=== PATIENT | female | born 1995 | race Caucasian/White ===

== ENCOUNTER 2020-06-02 12:20 | Emergency (ER) | payer BC, SELFPAY ==
--- NOTE | 2020-06-02 12:31 | ED.GENADULT ---
HPI - General Adult General Chief complaint: Upper Respiratory Infection Stated complaint: fliu symptoms Time Seen by Provider: 06/02/20 12:32 Source: patient Mode of arrival: ambulatory Limitations: no limitations History of Present Illness HPI narrative: 25-year-old female patient presents to the [facility] with complaints of cold and flulike symptoms for the past 3 days. Patient states that her mother was diagnosed with COVID-19 whom she does live with. Patient states that because of that she did get tested for Covid on Tuesday however did not develop symptoms until Tuesday. Patient states that the test that she received Tuesday did come back negative. Patient denies getting a flu shot this year. Patient states that she has had nasal congestion, runny nose, low-grade fever, a cough that is dry and a sore throat. Denies any abdominal pain, nausea, vomiting or diarrhea. Denies chest pain or shortness of breath. Related Data Home Medications Medication Instructions Recorded Confirmed escitalopram oxalate [Lexapro] 10 mg PO DAILY 06/02/20 06/02/20 Allergies Allergy/AdvReac Type Severity Reaction Status Date / Time No Known Allergies Allergy Verified 06/02/20 12:57 Review of Systems Review of Systems: Narrative: CONSTITUTIONAL: Positive low-grade fever, denies chills, or sweats. EYES: Denies visual changes, redness, or discharge. ENT: Positive rhinorrhea, congestion, sore throat, denies otalgia. CARDIOVASCULAR: Denies chest pain, palpitations, or edema. RESPIRATORY: Positive cough, denies dyspnea. GASTROINTESTINAL: Denies abdominal pain, nausea, vomiting, or diarrhea. GENITOURINARY: Denies dysuria or hematuria. SKIN: Denies rash or itching. MUSCULOSKELETAL: Denies back pain, joint pain, or myalgia. NEUROLOGIC: Denies headache, numbness, or weakness. PSYCHIATRIC: Denies anxiety or depression. PMFSH Social History Social History Gender identity (if verbalized by the patient): Female Comments At the time of my signature I agree with nursing past medical history, surgical, social, and family history. There is no relevant family history pertinent to the presenting complaint. Exam Narrative: Exam Narrative: GENERAL: ill-appearing, well-nourished, and in no acute distress. HEAD: Normocephalic, atraumatic. EYES: PERRLA and EOMI. ENT: Nares with erythema and edema noted bilaterally, no rhinorrhea or epistaxis. Mucous membranes moist. Bilateral TMs are clear no erythema or foreign bodies in the canal. NECK: Supple. No lymphadenopathy CHEST: Clear to auscultation. No respiratory distress. No labored breathing noted. No tripoding noted. Patient able talk clear complete sentences. HEART: Regular rate and rhythm. No murmur heard. Normal peripheral pulses. ABDOMEN: Soft, nontender, nondistended, normal active bowel sounds. EXTREMITIES: Normal range of motion. No edema. SKIN: Warm, dry, no rash. NEURO: No focal deficits. Alert and oriented x3. Course Vital Signs Vital signs: Vital Signs Temperature 36.7 C 06/02/20 12:50 Pulse Rate 105 H 06/02/20 12:50 Respiratory Rate 18 06/02/20 12:50 Blood Pressure 137/75 06/02/20 12:50 Pulse Oximetry 99 06/02/20 12:50 Temperature 36.7 C 06/02/20 12:58 Pulse Rate 105 H 06/02/20 12:58 Respiratory Rate 18 06/02/20 12:58 Blood Pressure 137/75 06/02/20 12:58 Pulse Oximetry 99 06/02/20 12:58 Vital signs reviewed. Medical Decision Making Differential Diagnosis Differential Diagnosis: Differential diagnosis: Allergic rhinitis, chronic sinusitis, tonsillitis, acute sinusitis, infectious mononucleosis, seasonal influenza, pertussis, diphtheria, meningococcal disease, viral syndrome, viral bronchitis, RSV. Discussed with patient that her strep and flu were both negative today. Discussed with patient that since her mother was positive she needs to just assume that she does have COVID-19 despite having a
[2020-06-02 12:50] VITALS: BP 137/75; PULSE 105; RESP 18; TEMP 36.7; O2SAT 99
[2020-06-02 12:58] VITALS: BP 137/75; PULSE 105; RESP 18; TEMP 36.7; O2SAT 99
== END 2020-06-02 13:19 | disposition home or self-care (01) ==
PROVIDERS: Emergency Provider Nurse Practitioner Family; PCP Internal Medicine
DX: J06.9 Acute upper respiratory infection, unspecified (principal); R05 Cough; Z20.828 Contact with and (suspected) exposure to other viral communicable diseases; F41.9 Anxiety disorder, unspecified
CPT/HCPCS: 87081; 87804; 87880; 99213; G0463

== ENCOUNTER 2024-02-01 12:08 | Outpatient (CLI) | payer OTHER, SELFPAY ==
--- NOTE | ~2024-02-01 | US_ITS ---
US breast LT limited INDICATION: Left breast palpable abnormality TECHNIQUE: Dedicated Limited left breast ultrasound COMPARISON: No prior studies for comparison. FINDINGS: The left breast is composed of normal heterogeneous echotexture without focal solid or cyst ic mass. IMPRESSION: 1: Normal left breast ultrasound. BI-RADS CATEGORY 1 - NEGATIVE Reviewed, dictated and finalized at location B.
== END 2024-02-01 12:09 | disposition home or self-care (01) ==
PROVIDERS: PCP Internal Medicine; Visit Provider Obstetrics & Gynecology
DX: N63.25 Unspecified lump in the left breast, overlapping quadrants (principal)
CPT/HCPCS: 76642

== ENCOUNTER 2024-03-07 12:56 | Outpatient (CLI) | payer OTHER, SELFPAY ==
[2024-03-07 14:30] LABS: Beta HCG Quantitative 4.29 mIU/ML
== END 2024-03-07 12:57 | disposition home or self-care (01) ==
LOC: ANHLAB 12:58
PROVIDERS: PCP Internal Medicine; Visit Provider Obstetrics & Gynecology
DX: N91.2 Amenorrhea, unspecified (principal)
CPT/HCPCS: 36415; 84702

== ENCOUNTER 2024-03-12 16:21 | Outpatient (CLI) | payer OTHER, SELFPAY ==
[2024-03-12 17:19] LABS: Beta HCG Quantitative < 2.39 mIU/ML
== END 2024-03-12 16:22 | disposition home or self-care (01) ==
LOC: ANHLAB 16:22
PROVIDERS: PCP Internal Medicine; Visit Provider Obstetrics & Gynecology
DX: N93.9 Abnormal uterine and vaginal bleeding, unspecified (principal)
CPT/HCPCS: 36415; 84702

== ENCOUNTER 2024-04-09 16:32 | Outpatient (CLI) | payer OTHER, SELFPAY ==
[2024-04-09 17:21] LABS: Beta HCG Quantitative < 2.39 mIU/ML
== END 2024-04-09 16:33 | disposition home or self-care (01) ==
LOC: ANHLAB 16:33
PROVIDERS: PCP Internal Medicine; Visit Provider Obstetrics & Gynecology
DX: E28.2 Polycystic ovarian syndrome (principal)
CPT/HCPCS: 36415; 84702

== ENCOUNTER 2025-03-07 15:46 | Outpatient (CLI) | payer OTHER, SELFPAY ==
--- OUTSIDE RECORDS SUMMARY | 2025-03-07 15:50 | XMS_ITS | Clinical Summary ---
Author Organization [facility] Address [address] [place] [address] Care Team Providers Care Preschool Head Teacher Name Role Phone Unavailable Primary Care Provider Unavailabl e Source Comments [facility],non-owned Affiliates and Associated Physician Practices is amultiple site organization consisting of ambulatory clinics and hospital sitesin [place], [place], [place] and [place]. This disclosure is being madepursuant to the Care Everywhere program and may not contain all information available regarding this patient. Last updated 18.[employer] Medications * Be aware that medications may not be up to date on this document. Alwaysverify current medications with the patient. sertraline (ZOLOFT) 50 MG tabletIndicatio ns:Depression/a nxiety during Take 50 mg by mouth once daily Reasons: Depression/anx iety during Active Active Problems Problem Noted Date Diagnosed Date Depression screen 09/24/2021 Overview (09/24/2021): 09/24/2021 Miguel Rhoades was screened for depression using the [place] Depression Scale (EPDS) at her [facility] initial evaluation on 09/24/2021. Her initial score at baseline was 4. Based off of her score of 4, Miguel does not warrant follow up. Patient will continue to be screened throughout , at intervals no closer than two weeks, for continued surveillance and early identification of depression until delivery. Patient reports mental health history. Diagnoses include depression and anxiety. 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 GROUP HOME PATIENT--PLEASE CALL [phone] (ex 2) IF TRIAGED OR ADMITTED Care Provider: Referred by Dr. Liang; OB- [facility] [place] consultants involved: You- Nurse Navigator, Cardiology- Dr. Falk Diagnosis: DORV with small RV; pulmonary stenosis Planned surveillance: Patient transferred care to [facility] as of 10/06/2021 Delivery location: Delivery mode: Desired Delivery GA: follow up: Print Inspector: Autopsy indicated: Genetics note: Tunnel Man Concerns:09/24/2021-Patient with history of depression and anxiety-does take medication Care plan based on evaluation and is subject to change based on assessment. See Images or Cardiac under Chart Review for US/ ECHO/ MRI reports. 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 Gender Identity Not on file Sexual Orientation Not on file Last Filed Vital Signs Vital Sign Reading Time Taken Comments Blood Pressure 126/74 09/24/2021 11:31 AM PILE DRIVING SUPERVISOR Pulse 91 09/24/2021 11:31 AM PILE DRIVING SUPERVISOR Temperature - - Respiratory Rate - - Oxygen Saturation - - Inhaled Oxygen Concentration - - Weight 101 kg (222 lb 10.6 oz) 09/24/2021 11:31 AM PILE DRIVING SUPERVISOR Height - - Body Mass Index - - Plan of Treatment Health Maintenance Due Date Last Done Comments HIV SCREENING 2011 HEPATITIS C SCREENING 04/29/2014 DTAP/TDAP/TD VACCINES (1 - Tdap) 2015 HEPATITIS B VACCINE (1 of 3 - 19+ 3-dose series) 2015 PAP SMEAR 2017 HPV VACCINE (1 - 3-dose SCDM series) 2023 COVID-19 VACCINE (1 - 2023-2 5 season) 2024 DEPRESSION SCREENING 07/18/2024 INFLUENZA VACCINE (#1) 2025 9, 06/24/2018, 08/09/2013 ZOSTER VACCINE (1 of 2) 2046 HIB VACCINE Aged Out No longer eligi ble based on patient's age to complete this topic MENINGOCOCCAL (Group B) VACCINE SHARED DECISION-MAKING Aged Out No longer eligible based on patient's age to complete this topic MENINGOCOCCAL GROUPS A/C/Y/W VACCINE Aged Out No longer eligible b ased on patient's age to complete this topic PNEUMOCOCCAL VACCINE Aged Out No long er eligible based on patient's age to complete this topic Insurance EM
--- OUTSIDE RECORDS SUMMARY | 2025-03-07 15:50 | XMS_ITS | Clinical Summary ---
Author Organization [facility] Address [address] [place] [address] Care Team Providers Care Business Center Attendant Name Role Phone Robby Gresham MD Primary Care Provider [phone] Allergies No known active allergies Medications omeprazole (PriLOSEC) 40 mg Capsule, Delayed Release(E.C.) Take 1 Capsule (40 mg) by mouth daily. 30 Capsule 3 3 Active Additional Information Patient not taking.Reported on 07/26/2024 ergocalciferol (VITAMIN D2) 50,000 unit capsule Take 1 Capsule (50,000 Units) by mouth every 7 days. 12 Capsule 3 3 Active Additional Information Patient not taking.Reported on 07/26/2024 sertraline (ZOLOFT) 25 mg tablet Take 1 Tablet (25 mg) by mouth daily. 90 Tablet 3 4 Active levothyroxine 25 mcg tablet Take 1 Tablet (25 mcg) by mouth daily in the morning. 90 Tablet 3 5 Active Hospital, Clinic, or Other Facility Administered Medication Ordered Dose Route Frequency Start Date End Date Status cyanocobalamin (VITAMIN B-12) injection 1,000 mcgIndications:Vitamin D deficiency 1000 mcg IM EVERY MONTH 11/11/2022 Active Active Problems Patient Care Coordination No te Formatting of this note migh t be different from the original. Prev 07/26/24 Problem Noted Date Diagnosed Date PCOS (polycystic ovarian syndrome) 07/26/2024 Other specified hypothyroidism 07/26/2024 Other hyperlipidemia 11/11/2022 Moderate episode of recurrent major depressive d isorder 08/02/2022 Hair loss 08/02/2022 Dysmenorrhea 05/26/2020 Vitamin B12 deficiency (non anemic) 11/29/2019 Vitamin D deficiency 11/29/2019 Obesity (BMI 30-39.9) 07/03/2018 Other specified glaucoma 12/14/2017 Generalized anxiety disorder 12/14/2017 Encounters Date Type Department Care Team Description 02/20/2025 External Device Data [facility] ABSTRACTION Provider, Abstract 02/19/2025 External Device Data [facility] ABSTRACTION Provider, Abstract 01/30/2025 External Device Data [facility] ABSTRACTION Provider, Abstract 01/29/2025 External Device Data [facility] ABSTRACTION Provider, Abstract 01/15/2025 External Device Data [facility] ABSTRACTION Provider, Abstract from Last 3 Months Immunizations Immunization Administration Dates Next Due (ADACEL/BOOSTRIX)(10 YR UP) TDAP VACCINE, 0.5ML, IM 11/19/2021,11/19/2021,03/16/2019,02/18 (GARDASIL)(9-45 YRS) HUMAN PAPILLOMAVIRUS VACCINE, TYPES 6, 11, 16, 18, QUADRIVALENT (4VHPV), 3 DOSE, IM 09/02/2008,04/26/2008,02/19/2008 (VARIVAX)(12 MOS UP)VARICELL A VIRUS VACCINE (PF) 0.5 ML, SUB CUT 02/07/2015,05/06/1997 INFLUENZA VACCINE QUADRIVALE NT 6 MOS UP CELL DERIVED PF IM 07/08/2019 INFLUENZA VACCINE QUADRIVALE NT 6 MOS UP PF IM 04/13/2023,06/24/2018 INFLUENZA VACCINE TRIVALENT SPLIT VIRUS, (6 MOS UP), 0.5ML (PF), IM 05/10/2024 Influenza Seasonal Unspecifi ed Formulation IM 04/13/2023,06/02/2022,04/17/2021,07/08,08/09/2013 Influenza Vaccine 18+ C.derived Pf Im 07/08/2019 Meningococcal Polysaccharide Vaccine SQ 02/07/2015,01/13/2011 Family History Medical History Relation Name Comments Asthma Brother 1 Colon Cancer Neg Hx Relation Name Status Comments Brother 1 Alive neurofibromatos is Brother 2 Alive Father Alive Maternal Grandfather Alive Maternal Grandmother Alive Mother Alive Paternal Grandfather Paternal Grandmother Social History Tobacco Use Types Packs/Day Years Used Date Smoking Tobacco: Never Passive Smoke Exposure: Never Smokeless Tobacco: Never Tobacco Cessation:Counseling Given: No Alcohol Use Standard Drinks/Week Comments Yes 1 (1 standard drink = 0.6 oz pur e alcohol) Comments No Sex and Gender Information Value Date Recorded Sex Assigned at Not on file Legal Sex Female 2:57 PM CDT Gender Identity Not on file Sexual Orientation Not on file Last Filed Vital Signs Vital Sign Reading Time Taken Comments Blood Pressure 126/72 07/26/2024 2:35 PM CONTROL CLERK AUDITING Pulse 71 07/26/2024 2:35 PM CONTROL CLERK AUDITING Temperature 37.1 C (98.7 F) 04/13/2023 2:52 PM CDT Respiratory Rate 18 04/13/2023 2:52 PM CDT Oxygen Saturation 98% 07/26/2024 2:35 PM CONTROL CLERK AUDITING Inhaled Oxygen Concentration - - Weight 115 kg (253 lb 9.6 oz) 07/26/2024 2:35 PM CONTROL CLERK AUDITING Height 170.2 cm (5' 7) 07/26/2024 2:35 PM CONTROL CLERK AUDITING Body Mass Index 39.72 07/26/2024 2:35 PM CONTROL CLERK AUDITING Plan of Treatment Upcoming Encounters Date Type Department Care Team (Late st Contact Info) Description 04/25/2025 2:20 PM CDT Office Visit [facility] [address] [id number] [place] [id number] Robby Gresham MD [address] [place] [phone] Health Maintenance Due Date Last Done Comments HEPATITIS B VACCINES (1 of 3 - 19+ 3-dose series) 2015 HPV/Cotest (21-29) 2017 CERVICAL CANCER SCREENING 04/17/2021 PAP SMEAR 04/17/2021 04/17/2018 INFLUENZA VACCINE (#1) 2025 , 04/13/2023, 04/13/2023, Additional history exists DTAP/TDAP/TD VACCINES (5 - T d or Tdap) 11/20/2031 11/19/2021, 11/19/2021, 03/16/2019, Additional history exists HPV VACCINES Completed 09/02/2008, 04/17, 02/19/2008 Preventative Visit- Commercial Completed 0 07/26/2024, 08/02/2022, 09/29/2020, Additional history exists Insurance [facility] OPEN ACCESS HMO Advance Directives For more information, please contact: [phone] * Full Code (Latest Code Status on File) Date Activated Date Inactivated Comments 11/28/2018 1:18 PM 11/28/2018 4:58 PM Care Teams Business Center Attendant Relationship Specialty Start Date End Date Robby Gresham MD PCP - General Internal Medicine 12/14/17
--- OUTSIDE RECORDS SUMMARY | 2025-03-07 15:50 | XMS_ITS | Clinical Summary ---
Author Organization [facility] 1 [employer] Address [address] [place] [address] Phone Care Team Providers Care Tank Builder Supervisor Name Role Phone Marlys Guan MD Unavailable Robby Gresham MD Primary Care Provider + uJliano Zamora MD Unavailable [phone] Allergies No known active allergies Medications omeprazole (PriLOSEC) 40 mg capsule 10/08/2022 Active sertraline (ZOLOFT) 25 mg tablet Take 1 tablet (25 mg total) by mouth daily 02/06/2023 Active HYDROcodone-sue taminophen (NORCO) 5-325 mg per tabletIndicatio ns:Pain Take 1-2 tablets by mouth every 4 (four) hours as needed for pain 40 tablet 05/27/2023 Active ibuprofen (ADVIL,MOTRIN) 200 mg tab/capIndicati ons:Pain Take 3 tablet/capsu le (600 mg total) by mouth 3 (three) times a day FOR 3 DAYS ONLY 30 tablet 05/27/2023 Active Active Problems Problem Noted Date Diagnosed Date Chronic cholecystitis with calculus 05/25/2023 Biliary dyskinesia 05/25/2023 Other hyperlipidemia 11/11/2022 12/05/2022 Hair loss 08/02/2022 12/05/2022 Moderate episode of recurrent major depressive d isorder 08/02/2022 12/05/2022 Generalized anxiety disorder 02/16/2022 Family history of neurofibromatosis 10/22/2021 Overview (10/22/2021): -Brother with neurofibromatosis - Type 1 Allergic rhinitis 07/13/2021 12/05/2022 Heart disease 07/13/2021 12/05/2022 Overview (12/05/2022): 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/2021 12/05/2022 Overview (12/05/2022): Note: mom and MGM Neurological disorder 07/13/2021 12/05/2022 Overview (12/05/2022): Note: MGF- Parkinsons Disease Primary hypertension 07/13/2021 12/05/2022 Overview (12/05/2022): Note: dad and all grandparents Depressive disorder 12/25/2020 12/05/2022 Overview (12/05/2022): Note: dx with anxiety at 19 y old: meds at 22 till pt stopped lexapro 10 mg with positive test; mom, brother Dysmenorrhea 05/26/2020 Vitamin B12 deficiency (non anemic) 11/29/2019 IBS (irritable bowel syndrome) 07/06/2019 Obesity (BMI 30-39.9) 07/03/2018 Other specified glaucoma 12/14/2017 Resolved Problems Problem Noted Date Diagnosed Date Resolved Date care following vaginal delivery 01/06/2022 02/16/2022 Overview (01/08/2022): # ID: Afebrile. No signs/symptoms of infection. #COVID-19: Test not indicated # Heme: EBL 200mL. No symptoms acute blood loss anemia. # CV/Pulm: Vital signs stable, within normal limits. Single MR BP on admission, otherwise wnl. Not meeting criteria for gHTN. BPs continue to be WNL . Complaints of dizziness yesterday which has since improved. # GI/: Tolerating PO. Voiding spontaneously. # Endo: #GDMA1: FBG Ppd#1 87@ 0501 # Pain: Controlled with above regimen. # Psych: #Anxiety: continue home zoloft. Needs refill, rx sent. S/p SW consult PP. # Post DVT prophylaxis: The patient has the following MAJOR risk factors none and the following MINOR risk factors BMI 30-39. SCDs ordered for VTE prophylaxis. # MOC: Not interested in contraception during admission # MOF: Exclusively pumping Urine drug screen not indicated. Patient informed of results: N/A. # COVID Vaccination Status: Not assessed # Disposition: Follow up task sent to [facility] scheduling pool. Desires discharge home today. PROM (premature rupture of membranes) 01/05/2022 02/16/2022 Encounter for induction of labor 01/05/2022 02/16/2022 Overview (01/05/2022): 1. Induction of labor for PPROM: Admit to L&D. Consents signed and placed in chart. Sending CBC/T&S. Induction of labor with OT. 2. FWB: Continuous monitoring. tracing category I #fCHD: Double outlet R ventricle. Peds to be alerted when complete. Not prostaglandin dependent. Pediatric cardiac ICU alerted. 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 ID: HIV negative. GBS unknown, plan to start PCN. Membrane Status: spontaneous rupture at 0800 on 01/05. 4. GDMA1: For OB insulin protocol. 5. Anxiety: Mood stable on Zoloft. 6. Indications for UDS: none. Verbal consent obtained for UDS: Not indicated 7. MOF: Plans to breastfeed. Urine drug screen not indicated. Patient informed of results: pending. 8. MOC: Undecided on contraception. 9. Pain management: Epidural placed. 10. Post DVT prophylaxis: The patient has the following MAJOR risk factors none and the following MINOR risk factors BMI 30-39. SCDs will be ordered for VTE prophylaxis . 11. COVID Vaccine Status: Not assessed 12. COVID Test Status: Test not indicated Single umbilical artery affe cting management of mother in valladares , antepartum 12/03/2021 02/16/2022 Overview (12/03/2021): S/p counseling. Plan: - Serial growth ultrasounds Assessment & Plan (12/03/2021 5:26 PM CDT): S/p counseling with MFM. Plan: - Serial growth ultrasounds Gestational diabetes mellitu s (GDM), antepartum 11/06/2021 02/16/2022 Overview (12/23/2021): - 1-hour OGTT: 156 mg/dL, 3-hour OGTT: (2/4 elevated) - s/p counseling 11/19 - s/p DM education Current regimen: 12/23/2021 Diet controlled Plan: -Serial growth scans q4 weeks - currently does not need testing in the setting of gDMA1 - Delivery at 39 0/7 - 39 6/7 weeks gestation - 2 hour/75g OGTT at visit Assessment & Plan (12/23/2021 9:57 AM CDT): BS log reviewed with excellent control. Discussed walks after bigger meals. Assessment & Plan (12/15/2021 12:26 PM CDT): BS well controlled. Continue current regimen. Encouraged protein snacks. Assessment & Plan (12/03/2021 5:25 PM CDT): S/p counseling with MFM and DM education. Currently diet controlled with excellent glycemic control. 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 10/22/21 - Echo - notable for a hypoplastic RV with normal systolic function, unclear if ventricle will be able to support the entirety of the pulmonary blood flow in a biventricular repair (single ventricle palliative plan) or if RV will grow enough for more definitive surgical repair with arterial switch procedure. 11/19/21 - Echo - stable findings from previous Plan: - Per pediatric cardiology, will plan to repeat echo 4-6 weeks after 11/19/21 echo to re-evaluate the outflow tracts, the size of the right ventricle, and aortic/ductal arch - will arrange echo/peds cards with a follow up MFM appointment - [facility] delivery[facility]: 39 weeks - plan: Planned admission to the cardiac ICU. Fetus is expected to be desaturated and O2 saturations should be >80%. As this is transposition physiology, if the is more hypoxic then a balloon atrial septostomy may be needed. The ASD appears patent on most recent echo and there is a large VSD to promote mixing. Not planning to start PGE unless cyanosis is noted. 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 10/22/21 - Echo - notable for a hypoplastic RV with normal systolic function, unclear if ventricle will be able to support the entirety of the pulmonary blood flow in a biventricular repair (single ventricle palliative plan) or if RV will grow enough for more definitive surgical repair with arterial switch procedure. 11/19/21 - Echo - stable findings from previous Plan: - Per pediatric cardiology, will plan to repeat echo 4-6 weeks after 11/19/21 echo to re-evaluate the outflow tracts, the size of the right ventricle, and aortic/ductal arch - will arrange echo/peds cards with a follow up MFM appointment - Location of delivery: [facility] TO: 39 weeks - plan: Planned admission to the cardiac ICU. Fetus is expected to be desaturated and O2 saturations should be >80%. As this is transposition physiology, if the infant is more hypoxic then a balloon atrial septostomy may be needed. The ASD appears patent on most recent echo and there is a large VSD to promote mixing. Not planning to start PGE unless cyanosis is noted. Urinary tract infection in m other during second trimester of 10/22/2021 02/16/2022 Overview (10/23/2021): 08/08 - Macrobid - No UC results viewable in CareEverywhere. Urine negative on 10/14, no further work-up Assessment & Plan (12/03/2021 5:28 PM CDT): UTI s/p treatment with macrobid. S/p negative GRAHAM. Supervision of high-risk pre gnancy, unspecified trimester 10/21/2021 02/16/2022 Overview (12/30/2021): [facility] Nurse - Genevieve Bush - [phone] [x] Full M Care; Referring Provider: Self/SSM/ASSISTED, Primary OB: Eric Delvalle [x] Dating Criteria: 1T US 8w1d [x] Labs: Rh [A+], Ab [neg], Rubella [Imm], HIV [neg], HepBSAg [neg], RPR [NR], GC/CT [neg] [x] Genetic Screening: NIPT LR w/ 22q11.1 del [x] CBC/Hgb electrophoresis (if indicated): 1.8/41.7/271 [x] Early 1hr GTT (if indicated) [x] UCx: no growth [x] Pap: 09/2020 WNL [] LD ASA (if indicated) starting at 12 weeks: [x] EPDS [6]; PNBHS referral (if indicated): referred by Ped Cards on 09/28 2nd Tri Labs: [x] Anatomy ultrasound: Complex CHD - DORV/VSD [x] CBC/1hr gtt at 24-28wks: 1 hr GTT: 156 H&H: 11.5/36 3 hr GTT: 85/194/184/131 [] Flu Shot () [x] Tdap (27-36wks): 5/5/22 MM [x] COVID Vaccine: reports she has received covid vaccination 3rd Tri Labs: [x] CBC/HIV/RPR:11.9/37.1 plt 244, HIV neg, RPR NR [] GBS: discussed for 36 weeks Counseling [x] MOD: IOL at 39 weeks, scheduled 01/25 [x] Place of delivery: [facility] [] MOC: [x] Method of feeding: plans to exclusively pump [x] Cleaner Wall: [] PP Depression Discussed: Assessment & Plan (12/03/2021 5:29 PM CDT): care up to date. Plan for 3T labs at next visit. [facility] Nurse - Genevieve Bush - [phone] [x] Full MFM Care; Referring Provider: Self/SSM/ASSISTED, Primary OB: Eric Delvalle [x] Dating Criteria: 1T US 8w1d [x] Labs: Rh [A+], Ab [neg], Rubella [Imm], HIV [neg], HepBSAg [neg], RPR [NR], GC/CT [neg] [x] Genetic Screening: NIPT LR w/ 22q11.1 del [x] CBC/Hgb electrophoresis (if indicated): 1.8/41.7/271 [x] Early 1hr GTT (if indicated) [x] UCx: no growth [x] Pap: 09/2020 WNL [] LD ASA (if indicated) starting at 12 weeks: [x] EPDS [6]; PNBHS referral (if indicated): referred by Ped Cards on 09/28 2nd Tri Labs: [x] Anatomy ultrasound: Complex CHD - DORV/VSD [x] CBC/1hr gtt at 24-28wks: 1 hr GTT: 156 H&H: 11.5/36 3 hr GTT: 85/194/184/131 [] Flu Shot () [x] Tdap (27-36wks): 5/5/22 MM [x] COVID Vaccine: reports she has received covid vaccination [x] Rhogam at 28 wks (if Rh neg): n/a 3rd Tri Labs: [] CBC/HIV/RPR/T&S: collect at next visit [] GBS: [] GC/CT (if indicated): Counseling [] MOD: [x] Place of delivery: [facility] [] MOC: [] Method of feeding: [] Cleaner Wall: [] PP Depression Discussed: Vitamin D deficiency 11/29/2019 022 Acute bacterial tonsillitis 02/22/2016 10/22/2021 Overview (10/23/2016): Acute bacterial tonsillitis Pharyngitis 02/22/2016 10/22/2021 Overview (10/23/2016): Pharyngitis, unspecified etiology Anxiety during 02/12/201608/2021 Overview (12/23/2021): S/p counseling 10/22 Plan: - continue zoloft, discussed options for increasing dose and pt will consider - established with [facility] - will plan for weekly visits at this time - Monitor mood each visit Assessment & Plan (12/23/2021 9:56 AM CDT): Reports significant anxiety this . Has a doppler at home. [facility] reviewed today. Patient feels weekly appts have been helpful. Assessment & Plan (12/15/2021 12:25 PM CDT): Reports increased anxiety. Open to increasing meds but wants to try increasing her appts and therapy first. Reports GI upset when started zoloft. Assessment & Plan (12/03/2021 5:27 PM CDT): S/p counseling 10/22. Mood appropriate today, on zoloft. Plan: - Continue zoloft - Monitor mood each visit Assessment & Plan (10/23/2021 5:05 PM CDT): Ms. Rhoades is currently on Zoloft and feels that it does alleviate symptoms of depression. She feels that her mood is currently stable. We discussed that we do not have sufficient human data to rule out potential risks, however, there are no strong associations with any congenital malformations. We discussed that the potential risks of any medications need to be weighed against the risks of uncontrolled maternal disease in and that in many cases, the risks of uncontrolled maternal depression outweigh potential risks of SSRIs. We also discussed abstinence syndrome and potential for respiratory depression and longer hospital stay for the . SEFERINO symptoms can be managed and there have not been oysterman effects reported. Otitis externa 04/15/2014 10/22/2021 Overview (10/23/2016): Otitis externa, left Immunizations Immunization Administration Dates Next Due Flucelvax Influenza Quad 07/08/2019 HPV, Quadrivalent 09/02/2008,04/26/2008,02/19/20 08 Influenza, Quadrivalent, Spl it, Preservative Free, Intramuscular 06/24/2018 Influenza, Split 08/09/2013 Influenza, Trivalent, Cell Culture-based MDCK, Preservative Free, Antibiotic Free, Intramuscular 07/08/2019 Influenza, Trivalent, IM (MDV) 2,04/17/2021,07/08/2019,08/09 Meningococcal MCV4P (Menactra) 02/07/2015,2010 Tdap 11/19/2021,03/16/2019,02/19/2008 Varicella 02/07/2015,05/06/1997 Surgical History Surgery Date Site/Laterality Comments OTHER SURGICAL HISTORY 07/18/2019 - 07/17/2020 Excision epidermoid cyst - left chest Medical History Medical History Date Comments Acute bacterial tonsillitis 02/22/2016 Acut e bacterial tonsillitis Vitamin D deficiency 11/29/2019 Pharyngitis 02/22/2016 Pharyngitis, uns pecified etiology Otitis externa 04/15/2014 Otitis externa, left GDM (gestational diabetes mellitus) Anxiety Depression Glaucoma Menstrual problem Family History Medical History Relation Name Comments Neurofibromatosis Brother 1 Depression Brother 2 [place] Cancer Maternal Grandfather Kenrick Anemia Maternal Grandmother Jojo Breast cancer Maternal Grandmother Jojo Cancer Maternal Grandmother Jojo Endometrial cancer Maternal Grandmother Jojo Stroke Maternal Grandmother Jojo Anemia Mother Stephanie Hypertension Mother Stephanie Anemia Mother's Sister Ayah Other Other 1 1 Other Other 2 1 Other Other 3 1 Alzheimer's disease Paternal Grandmother Yolanda Stroke Paternal Grandmother Yolanda Onset 3 0s Relation Name Status Comments Brother 1 Brother 2 [place] Maternal Grandfather Kenrick Maternal Grandmother Jojo Mother Stephanie Mother's Sister Ayah Other 1 Other 2 Other 3 Paternal Grandmother Yolanda Social History Tobacco Use Types Packs/Day Years Used Date Smoking Tobacco: Never Smokeless Tobacco: Never Tobacco Cessation:Counseling Given: Not Answered Alcohol Use Standard Drinks/Week Comments No 0 (1 standard drink = 0.6 oz pur e alcohol) Social Connection and Isolation Panel Answer Date Recorded In a typical week, how many times do you talk on the phone with family, friends, or neighbors? More than three times a week 01/07/2022 How often do you get togethe r with friends or relatives? More than three times a week 01/07/2022 How often do you attend chur ch or advent services? Never 01/07/2022 Do you belong to any clubs o r organizations such as gnosticism groups, unions, fraternal or athletic groups, or school groups? No 01/07/2022 How often do you attend meet ings of the clubs or organizations you belong to? Never 01/07/2022 Are you , , di vorced, , never , or living with a partner? 01/07/2022 AUDIT-C Answer Date Recorded Q1: How often do you have a drink containing alcohol? Never 02/13/2023 Q2: How many drinks containi ng alcohol do you have on a typical day when you are drinking? Patient does not drink Q3: How often do you have si x or more drinks on one occasion? Never 02/13/2023 Overall Financial Resource Strain (CARDIA) Answe r Date Recorded How hard is it for you to pa y for the very basics like food, housing, medical care, and heating? Not hard at all 01/07/2022 Hunger Vital Sign Answer Date Recorded Within the past 12 months, y ou worried that your food would run out before you got the money to buy more. Never true 01/08/20 22 Within the past 12 months, t he food you bought just didn't last and you didn't have money to get more. Never true 01/07/2022 PRAPARE - Transportation Answer Date Re corded In the past 12 months, has l ack of transportation kept you from medical appointments or from getting medications? No 12/17 In the past 12 months, has l ack of transportation kept you from meetings, work, or from getting things needed for daily living? No 01/07/2022 Housing Stability Vital Sign Answer Rodger e Recorded In the last 12 months, was t here a time when you were not able to pay the mortgage or rent on time? No 01/07/2022 In the last 12 months, how many places have you lived? 1 01/07/2022 In the last 12 months, was t here a time when you did not have a steady place to sleep or slept in a chcf (including now)? No 01/07/2022 Burwell Depression Scale Answer Date Recorded Burwell Depression Scale Total 8 02/16/2022 The thought of harming myself has occurred to me . Never 02/16/2022 Personal Safety Answer Date Recorded Have you ever been in or are you currently in a harmful physical or emotional relationship or is someone making you feel afraid or unsafe? 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 Main C ampus ([facility]) Last Filed Vital Signs Vital Sign Reading Time Taken Comments Blood Pressure 139/78 05/27/2023 3:35 PM [employer]ODU[employer] SALES REPRESENTATIVE Pulse 102 05/27/2023 3:35 PM [employer] SALES REPRESENTATIVE Temperature 36.9 C (98.5 F) 05/27/2023 3:20 PM [employer] SALES REPRESENTATIVE Respiratory Rate 14 05/27/2023 3:35 PM [employer] SALES REPRESENTATIVE Oxygen Saturation 96% 05/27/2023 3:35 PM [employer] SALES REPRESENTATIVE Inhaled Oxygen Concentration - - Weight 103.7 kg (228 lb 9.9 oz) 023 10:01 AM [employer] SALES REPRESENTATIVE Height 172.7 cm (5' 8) 05/27/2023 10:0 1 AM [employer] SALES REPRESENTATIVE Body Mass Index 34.76 05/27/2023 10:01 AM [employer] SALES REPRESENTATIVE Plan of Treatment Health Maintenance Due Date Last Done Comments Hepatitis C Screening 1995 Hepatitis B Screening 2014 Cervical Cancer Screening 09/29/2021 09/29/2020, Regular Well Visit/Exam 18-64 09/29/2021 09/29/2020, 07/06/2019, 07/03/2018, Additional history exists Depression Screening 02/16/2023 02/16/2022 Influenza Vaccine (#1) 2025 3, 06/02/2022, 04/17/2021, Additional history exists DTaP/Tdap/Td Vaccine (4 - Td or Tdap) 11/20/2031 11/19/2021, 03/16/2019, 02/19/2008 HPV Vaccines Completed 09/02/2008, 04/17, 02/19/2008 Varicella Vaccines Completed 02/07/2015, 05/06/1997 Pneumococcal vaccine <65 Aged Out No longer eligible based on patient's age to complete this topic Procedures Procedure Name Priority Date/Time Associated Diagnosis Comments THINPREP IMAGING PAP REFLEX HPV MRNA E6/E7 Routine 09/29/2020 12:00 AM CDT from Last 3 Months or Most Recently Relevant to Health Maintenance Results * ThinPrep Imaging Pap Reflex HPV mRNA E6/E7 (09/29/2020 12:00 AM CDT) CLINICAL INFORMATION: Sanaz Davila Comment:Information not prov ided LMP Sanaz Davila Comment:09/11/20 Previous Pap Sanaz MarkBety Davila Comment:PREV NEG Prev. Bx Sanaz MarkBety Davila Comment:Information not prov ided SOURCE: Sanaz MarkBety Davila Comment:Cervix, Endocervix Pap, specimen adequacy Sanaz MarkBety Davila Comment: Satisfactory for evaluation. Endocervical/transformation zone component present. HPV interp Sanaz MarkBety Davila Comment:Negative for intraep ithelial lesion or malignancy. COMMENTS Sanaz MarkBety Davila Comment: This Pap test has been evaluated with computer assisted technology. Buttonhole Maker Hand Jorge lee MarkBety Davila Comment: TMK, CT(ASCP) CT screening location: [place] [address] Administration [place] [id number] Comment Sanaz MarkBety Davila Comment: EXPLANATORY NOTE: The Pap is a screening test for cervical cancer. It is not a diagnostic test and is subject to false negative and false positive results. It is most reliable when a satisfactory sample, regularly obtained, is submitted with relevant clinical findings and history, and when the Pap result is evaluated along with historic and current clinical information. 09/29/2020 09/30/2020 3:3 1 AM CDT Narrative [facility] - 10/01/2020 12:32 PM CDT FASTING: UNKNOWN Marlys Guan MD LAB PATHOLOGY ORDERAB LES Final Result [facility] [place] Sanaz [place] [id number] [address] [place] [phone] from Last 3 Months or Most Recently Relevant to Health Maintenance Insurance [employer] [place] H[employer]/POS [employer] [facility] HMO [facility] HMO Advance Directives For more information, please contact: [phone] * Full Code (Latest Code Status on File) Date Activated Date Inactivated Comments 01/06/2022 8:23 AM 01/08/2022 6:05 PM * Full Code Date Activated Date Inactivated Comments 01/05/2022 9:08 AM 01/06/2022 8:23 AM Care Teams Tank Builder Supervisor Relationship Specialty Start Date End Date Robby Gresham MD [address] [id number] PCP - General 12/24/17 Marlys Guan MD [address] [id number] Obstetrics and Gynecology 02/23/17 Juliano Zamora MD [address] [address] Consulting Physician General Surgery 05/27/23
[2025-03-07 16:25] LABS: Hematocrit 36.6 % (37.0-47.0); Hemoglobin 11.3 g/dL (12.0-15.0); Mean Corpuscular HGB Conc 30.9 g/dl (32-36); Mean Corpuscular Hemoglobin 26.5 pg (26-34); Mean Corpuscular Volume 85.7 fl (80-100); Platelet Count Result 257 k/mm3 (150-375); Red Blood Count 4.27 M/mm3 (4.2-5.4); White Blood Count 7.1 K/mm3 (4.5-10.0)
[2025-03-07 17:09] LABS: Syphilis IgG/IgM Antibody Non-Reactive (Nonreactive)
[2025-03-07 17:12] LABS: Thyroid Stimulating Hormone Reflex 5.780 uIU/mL (0.465-4.68)
[2025-03-07 17:20] LABS: HIV 1/2 Ab P24 Ag Result Negative (Negative)
[2025-03-07 17:55] LABS: Beta HCG Quantitative 87926.00 mIU/ML
[2025-03-07 18:01] LABS: Hemoglobin A1C 5.1 % (<5.7)
[2025-03-07 18:38] LABS: Free T4 Free Thyroxine Reflex 0.97 ng/dL (0.78-2.19)
[2025-03-07 20:04] LABS: Total Triiodothyronine (T3) 1.61 NG/ML (0.82-1.58)
[2025-03-08 15:09] LABS: Varicella-Zoster Ab, IgG Reactive (Non Reactive); Varicella-Zoster Ab, IgM <0.91 index (0.00-0.90)
[2025-03-09 07:08] LABS: Cytomegalovirus (CMV) Ab, IgG <0.60 U/mL (0.00-0.59)
[2025-03-11 13:08] LABS: Parvovirus B19, IgG 5.7 index (0.0-0.8); Parvovirus B19, IgM 0.2 index (0.0-0.8)
== END 2025-03-07 15:47 | disposition home or self-care (01) ==
PROVIDERS: PCP Internal Medicine; Visit Provider Student in an Organized Health Care Education/Training Program
DX: N94.89 Other specified conditions associated with female genital organs and menstrual cycle (principal); Z72.89 Other problems related to lifestyle
CPT/HCPCS: 36415; 83036; 84439; 84443; 84480; 84702; 85027; 86593; 86644; 86703; 86747; 86762; 86787; 86850; 86900; 86901; 87086; 87350; G0432

== ENCOUNTER 2025-04-04 06:58 | Outpatient (CLI) | payer OTHER, SELFPAY ==
--- OUTSIDE RECORDS SUMMARY | 2025-04-04 07:03 | XMS_ITS | Clinical Summary ---
Author Organization [facility] [address] Address [address] [place] [address] Phone Care Team Providers Care Cotton Picker Operator Name Role Phone Marlys Guan MD Unavailable Robby Gresham MD Primary Care Provider + Juliano Zamora MD Unavailable [phone] Allergies No known active allergies Medications omeprazole (PriLOSEC) 40 mg capsule 10/08/2022 Active sertraline (ZOLOFT) 25 mg tablet Take 1 tablet (25 mg total) by mouth daily 02/06/2023 Active HYDROcodone-acet aminophen (NORCO) 5-325 mg per tabletIndication s:Pain Take 1-2 tablets by mouth every 4 (four) hours as needed for pain 40 tablet 05/27/2023 Active ibuprofen (ADVIL,MOTRIN) 200 mg tab/capIndicatio ns:Pain Take 3 tablet/capsu le (600 mg total) by mouth 3 (three) times a day FOR 3 DAYS ONLY 30 tablet 05/27/2023 Active ferrous sulfate (iron) 325 mg (65 mg of elemental iron) tablet 03/11/2025 Active levothyroxine (SYNTHROID) 25 mcg tablet Take 2 tablets (50 mcg total) by mouth daily Active metFORMIN XR (GLUCOPHAGE XR) 500 mg 24 hr tablet 03/27/2025 Active progesterone 200 mg vaginal suppository 01/19/2025 Active 21/iron fu/folic acid ( COMPLETE ORAL) 07/18/2024 Acti ve Active Problems Problem Noted Date Diagnosed Date Subchorionic hemorrhage of placenta in first tri mester 03/28/2025 Overview (03/28/2025): 1.5 cm subchorionic bleed on US, asymptomatic. Continue to monitor History of delivery 03/28/2025 Overview (03/28/2025): History of PPROM at 36w1d in setting of cardiac anomaly, IOL for decels following presentation with uncomplicated Discussed that patient's prior PTD likely related to anomaly. However she is at increased risk of PTD in future pregnancies. After one PTB, the risk of a recurrent PTB is as high as 30%. Plan: [] Routine transvaginal cervical length at time of anatomy US History of gestational diabe tejinder in prior , currently 03/28/2025 Overview (03/28/2025): History of GDMA1 in prior . Passed 6 week GTT. A1c 5.2% On metformin due to history of PCOS Failed early 1 hr GTT this , 3 hr is pending Counseling: Up to two-thirds of women with a history of gestational diabetes will have recurrent gestational diabetes in a subsequent pregnancies. Therefore, we recommend an early 1 hour gestational diabetes screen. If negative, a repeat screen should be performed at 25-28 weeks. We reviewed the filler leaf cutter long risks associated with GDM including Type 2 diabetes, metabolic syndrome,and cardiovascular disease. Discussed discontinuing metformin for PCOS indication. Plan: Follow up 3hr GTT results Supervision of high risk , antepartum 0 03/21/2025 Overview (03/28/2025): SEROLOGIES NEEDED [] OB consult only, [] Co-management vs. [x] Full [facility] Care; [] Red Team [] Blue Team Referring Provider: self referral to [facility], transferring care from Dr. Buzz Montes [] or Medicare Insurance [] Dating Criteria: UNK [] Labs: Rh [], Ab [], Rubella [], HIV [], HepBSAg [], HepBSAb [], HepBCAb [], RPR [], Hep C [], Varicella [], GC/CT [] [] Aneuploidy Screening: to be drawn at [facility] at next visit [x] Carrier Screening: [] Hgb electrophoresis: [] CBC/Hgb: [] Early 1hr GTT (if indicated): [] UCx: [] Pap: [] LD ASA (if indicated): [] EPDS [ ]; [facility] referral (if indicated): 2nd Trimester [] Anatomy ultrasound: [] CBC/1hr gtt at 24-28wks: [] Rhogam at 28 wks (if Rh neg): 3rd Trimester [] CBC/HIV/RPR/T&S: [] GBS: [] GC/CT (if indicated): [] testing: Counseling [] MOD: [] Place of delivery: [facility] [] Epidural: [] Accepts Blood Products: [] Stop ASA: [] MOC: [] Method of feeding: [] Infrastructure Analyst (specifically which provider): [] PP Depression Discussed: [] PP visits scheduled: Vaccines [] Flu Shot (Mar-Jun): [] COVID vaccine: [] Tdap (27-36wks): [] RSV vaccine (32-36wks): [] PP HPV vaccine counseling (<=26 yo): History of cardiac anomaly in prior Overview (03/28/2025): Prior child with DORV and d-TGA, normal microarray. Doing well now. Reviewed increased risk of CHD in this . Plan: [] Early anatomy US and specialized anatomy [] echo (ordered) Hypothyroidism affecting , antepartum 0 03/21/2025 Overview (03/28/2025): History of Graves/hyperthyroidism?: No Pre- regimen: Synthroid 50mcg Counseling 03/28/2025 Well controlled hypothyroidism is is generally not associated with adverse outcomes. Poorly controlled, overt hypothyroidism has been associated with a number of poor outcomes, including gestational hypertension and preeclampsia, abruption, delivery, miscarriage, low weight, cognitive impairment, and hemorrhage. individuals with hypothyroidism should maintain their TSH at < 2.5 mU/L throughout to optimize outcomes. Typically, T4 requirements will increase in , sometimes as much as 50% by the 5th gestational week. Dose adjustments should be made based on TSH level, rather than T4 or T3 levels. We recommend screening TSH every trimester, as up to 60% of patients with pre-existing hypothyroidism will require increasing their replacement dose through . Patients with a history of Grave s disease may have persistent anti-thyroid antibodies that may cross the placenta and rarely can cause Grave s disease which can manifest with a tachycardia, goiter, or FGR prenatally or Grave s after . AAP recommends that any patient with a history of Grave s disease have antibody screening in to guide management. Current regimen: Synthroid 100mcg (recently increased by primary OB) Plan: [] Maintain TSH within at < 2.5 mU/L throughout [] Repeat TSH at least once a trimester if well controlled (repeat at next [facility] visit which will be 4 weeks since dose change) [] T1: obtain from primary OB [] T2: [] T3: [] If uncontrolled or if making dose adjustments to medication, repeat every 4-6 weeks until controlled [] Return to pre- dosing with plan to recheck at 6 weeks History of PCOS 03/21/2025 Other hyperlipidemia 11/11/2022 12/05/2022 Moderate episode of recurrent major depressive d isorder 08/02/2022 12/05/2022 Generalized anxiety disorder 02/16/2022 Family history of neurofibromatosis 10/22/2021 Overview (10/22/2021): -Brother with neurofibromatosis - Type 1 Allergic rhinitis 07/13/2021 12/05/2022 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 Previously on Zoloft, no meds at present. Sees a therapist and symptoms are well controlled at present. 03/28/25 EPDS 3 Plan: Continue to monitor mood throughout Vitamin B12 deficiency (non anemic) 11/29/2019 IBS (irritable bowel syndrome) 07/06/2019 Obesity (BMI 30-39.9) 07/03/2018 Other specified glaucoma 12/14/2017 Estimated Date of Delivery Comme nts Yes 10/10/2025 Based on Other B asis Resolved Problems Problem Noted Date Diagnosed Date Resolved Date Hemorrhage 03/21/2025 03/28/2025 Chronic cholecystitis with calculus 05/25/2023 03/28/2025 Biliary dyskinesia 05/25/2023 Hair loss 08/02/2022 12/05/2022 03/28/2025 care following vaginal delivery 01/06/2022 02/16/2022 Overview [...] # Disposition: Follow up task sent to [facility] scheduling pool. Desires discharge home today. [...] (12/03/2021 5:26 PM CDT): S/p counseling with [facility]. Plan: - Serial growth ultrasounds Gestational diabetes [...] arrange echo/peds cards with a follow up [facility] appointment - Location of delivery: [facility] TOD: 39 weeks - plan: Planned admission to [...] arrange echo/peds cards with a follow up M appointment - Location of delivery: [facility] TOD: 39 weeks - plan: Planned admission to [...] gnancy, unspecified trimester 10/21/2021 02/16/2022 Overview (12/30/2021): [facility] Nurse - Genevieve Bush - [phone] [x] Full MFM Care; Referring Provider: Self/SSM/CORRECTION, Primary OB: Eric Delvalle [x] Dating Criteria: [...] 3 hr GTT: 85/194/184/131 [] Flu Shot (Mar-Jun) [x] Tdap (27-36wks): 11/19/ MM [x] COVID Vaccine: reports she has received covid vaccination 3rd Tri Labs: [x] CBC/HIV/RPR:11.9/37.1 plt 244, HIV neg, RPR NR [] GBS: discussed for 36 weeks Counseling [x] MOD: IOL at 39 weeks, scheduled 01/25 [x] Place of delivery: [facility] [] MOC: [x] Method of feeding: plans to exclusively pump [x] Infrastructure Analyst: [] PP Depression Discussed: Assessment & Plan (12/03/2021 5:29 PM CDT): care up to date. Plan for 3T labs at next visit. [facility] Nurse - Genevieve Bush - [phone] [x] Full M Care; Referring Provider: Self/SSM/CORRECTION, Primary OB: Eric Delvalle [x] Dating Criteria: [...] 3 hr GTT: 85/194/184/131 [] Flu Shot (Mar-Jun) [x] Tdap (27-36wks): 5/5/22 MM [x] COVID Vaccine: reports she has received covid vaccination [x] Rhogam at 28 wks (if Rh neg): n/a 3rd Tri Labs: [] CBC/HIV/RPR/T&S: collect at next visit [] GBS: [] GC/CT (if indicated): Counseling [] MOD: [x] Place of delivery: [facility] [] MOC: [] Method of feeding: [] Infrastructure Analyst: [] PP Depression Discussed: Heart disease 07/13/2021 12/05/2022 03/28/2025 Overview (12/05/2022): Note: PGF Dysmenorrhea 05/26/2020 03/28/2025 Vitamin D deficiency 11/29/2019 022 Acute bacterial tonsillitis 02/22/2016 10/22/2021 Overview (10/23/2016): Acute bacterial tonsillitis Pharyngitis 02/22/2016 10/22/2021 Overview (10/23/2016): Pharyngitis, unspecified etiology Anxiety during 02/12/201608/2021 Overview (12/23/2021): S/p counseling 10/22 Plan: - continue zoloft, discussed options for increasing dose and pt will consider - established with [facility] - will plan for weekly visits at this time - Monitor mood each visit Assessment & Plan (12/23/2021 9:56 AM CDT): Reports significant anxiety this . Has a doppler at home. [facility] reviewed today. Patient feels weekly appts have [...] be managed and there have not been assisted effects reported. Otitis externa 04/15/2014 10/22/2021 Overview (10/23/2016): Otitis externa, left Encounters Date Type Department Care Team Description 03/28/2025 1:30 PM CDT Office Visit [facility] [address] [place], [place] [id number] [place] [address] History of cardiac anomaly in prior (Primary Dx); Hypothyroidism affecting , antepartum; Supervision of high risk , antepartum; Depression affecting ; History of delivery; History of gestational diabetes in prior , currently ; Subchorionic hemorrhage of placenta in first trimester 03/28/2025 12:30 PM CDT Ancillary Procedure [facility] Gynecology [address] [place] [address] [address] [place] [address] Supervision of high-risk , unspecified trimester 03/13/2025 Telephone [facility] Maternal- Medicine [address] [facility] [address] [place] [address] Chantell Sheikh, [facility] Self-Referral from Last 3 Months Immunizations Immunization Administration Dates Next Due Flucelvax [...] 01/07/2022 How often do you attend chur or uatsdin services? Never 01/07/2022 Do you belong to any clubs o r organizations such as advent groups, unions, fraternal or athletic groups, or [...] you are drinking? Patient does not drink 3 Q3: How often do you have si [...] place to sleep or slept in a fci (including now)? No 01/07/2022 [place] Depression Scale Answer Date Recorded [place] Depression Scale Total 3 03/28/2025 The thought of harming myself has occurred to me . Never 03/28/2025 Personal Safety Answer Date Recorded Have you ever been in or are you currently in a harmful physical or emotional relationship or is someone making you feel afraid or unsafe? 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 Main C ampus ([facility]) Current Summary Episode Dates Number of Fetuses Estimated Date of Delivery 03/21/2025 - Present (04/04/2025) 10/10/2025 (set by Yuliana Parra MD on 03/28/2025 based on Other Basis) Dating Summary Based On VERENICE GA Diff Other Basis 10/10/2025 Working Vitals Pregravid Weight Height TWG (As of 04/04/2025) Pregrav id BMI 172.7 cm (5' 8) Notes Progress Notes - Office Visi t - 03/28/2025 - GA:12w0d 03/28/2025 - 12w0d - Yuliana Dumont MD Images from the original note were not included. Maternal Medicine Consult Note- Emma Reason for Consult: History of cardiac defect Requesting Provider: Dr. Buzz Montes Dear Dr. Delvalle, We had the pleasure of seeing your patient Demarco Rhoades in our office today. As you know, she is a 29 y.o. at 12w0d here today for a consult regarding history of cardiac defect. Her is also complicated by prior 36 week PPROM, hx of GDMA1, and hypothyroidism. This is an IUI . Today she is doing well and has no complaints. No abd pain or VB. Past Medical History: Diagnosis Date Acute bacterial tonsillitis 02/22/2016 Acute bacterial tonsillitis Anxiety Depression GDM (gestational diabetes mellitus) Glaucoma Menstrual problem Otitis externa 04/15/2014 Otitis externa, left Pharyngitis 02/22/2016 Pharyngitis, unspecified etiology Vitamin D deficiency 11/29/2019 Primary HTN documented in chart however patient denies this and was normotensive in last and today PSH: [facility] teeth extraction Past Gynecologic History: Prior STIs: Denies History of abnormal pap: Denies Last pap smear: 2023 Denies history of uterine anomalies or fibroids History of PCOS OB History Para Term AB Living 4 1 0 1 2 1 SAB IAB Ectopic Multiple Live Births 0 0 0 0 1 # Outcome Date GA Lbr Jordan/2nd Weight Sex Type Anes PTL Lv 4 Current 3 01/06/22 36w2d / 02:14 2.25 kg (4 lb 15.4 oz) M Vag-Spont EPI Y JOSE 2 AB 1 AB Current Outpatient Medications Medication Sig Dispense Refill ferrous sulfate (iron) 325 mg (65 mg of elemental iron) tablet levothyroxine (SYNTHROID) 25 mcg tablet Take 2 tablets (50 mcg total) by mouth daily metFORMIN XR (GLUCOPHAGE XR) 500 mg 24 hr tablet 21/iron fu/folic acid ( COMPLETE ORAL) progesterone 200 mg vaginal suppository omeprazole (PriLOSEC) 40 mg capsule sertraline (ZOLOFT) 25 mg tablet Take 1 tablet (25 mg total) by mouth daily No current facility-administered medications for this visit. 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 She has been screened and is negative. Cousin with CHD. No Known Allergies Social History Tobacco Use Smoking status: Never Smokeless tobacco: Never Substance and Sexual Activity Drug use: Never Sexual activity: Yes Partners: Male control/protection: None Alcohol Use: Not At Risk (02/13/2023) AUDIT-C Frequency of Alcohol Consumption: Never Average Number of Drinks: Patient does not drink Frequency of Binge Drinking: Never Review of Systems Review of Systems Constitutional: Negative. Respiratory: Negative. Cardiovascular: Negative. Gastrointestinal: Negative. Genitourinary: Negative. Musculoskeletal: Negative. Neurological: Negative. Psychiatric/Behavioral: Negative. Physical Exam Vitals BP 135/82 Pulse 85 Ht 172.7 cm (5' 8) Wt 242 lb 8.1 oz (110 kg) SpO2 98% BMI 36.87 kg/m Constitutional: NAD, well appearing CV: regular rate RESP: Normal respiratory effort Neurologic: alert and moves all extremities Psychiatric: Alert and appropriate affect Extr: Non edematous Ultrasound 03/28/2025: Single IUP with cardiac activity. Small subchorionic bleed. Please see the separate report for full details Assessment: Ms. Demarco Rhoades is a 29 y.o. at 12w0d here today for a consult regarding: Recommendations: Problem History of cardiac anomaly in prior Prior child with DORV and d-TGA, normal microarray. Doing well now. Reviewed increased risk of CHD in this . Plan: [] Early anatomy US and specialized anatomy [] echo (ordered) Subchorionic Hemorrhage of Placenta in First Trimester 1.5 cm subchorionic bleed on US, asymptomatic. Continue to monitor History of Delivery History of PPROM at 36w1d in setting of cardiac anomaly, IOL for decels following presentation with uncomplicated Discussed that patient's prior PTD likely related to anomaly. However she is at increased risk of PTD in future pregnancies. After one PTB, the risk of a recurrent PTB is as high as 30%. Plan: [] Routine transvaginal cervical length at time of anatomy US History of Gestational Diabetes in Prior , Currently History of GDMA1 in prior . Passed 6 week GTT. A1c 5.2% On metformin due to history of PCOS Failed early 1 hr GTT this , 3 hr is pending Counseling: Up to two-thirds of women with a history of gestational diabetes will have recurrent gestational diabetes in a subsequent pregnancies. Therefore, we recommend an early 1 hour gestational diabetes screen. If negative, a repeat screen should be performed at 25-28 weeks. We reviewed the filler leaf cutter long risks associated with GDM including Type 2 diabetes, metabolic syndrome,and cardiovascular disease. Discussed discontinuing metformin for PCOS indication. Plan: Follow up 3hr GTT results Hypothyroidism Affecting , Antepartum History of Graves/hyperthyroidism?: No Pre- regimen: Synthroid 50mcg Counseling 03/28/2025 Well controlled hypothyroidism is is generally not associated with adverse outcomes. Poorly controlled, overt hypothyroidism has been associated with a number of poor outcomes, including gestational hypertension and preeclampsia, abruption, delivery, miscarriage, low weight, cognitive impairment, and hemorrhage. individuals with hypothyroidism should maintain their TSH at < 2.5 mU/L throughout to optimize outcomes. Typically, T4 requirements will increase in , sometimes as much as 50% by the 5th gestational week. Dose adjustments should be made based on TSH level, rather than T4 or T3 levels. We recommend screening TSH every trimester, as up to 60% of patients with pre-existing hypothyroidism will require increasing their replacement dose through . Patients with a history of Grave s disease may have persistent anti-thyroid antibodies that may cross the placenta and rarely can cause Grave s disease which can manifest with a tachycardia, goiter, or FGR prenatally or Grave s after . AAP recommends that any patient with a history of Grave s disease have antibody screening in to guide management. Current regimen: Synthroid 100mcg (recently increased by primary OB) Plan: [] Maintain TSH within at < 2.5 mU/L throughout [] Repeat TSH at least once a trimester if well controlled (repeat at next [facility] visit which will be 4 weeks since dose change) [] T1: obtain from primary OB [] T2: [] T3: [] If uncontrolled or if making dose adjustments to medication, repeat every 4-6 weeks until controlled [] Return to pre- dosing with plan to recheck at 6 weeks Anxiety affecting Diagnosed with anxiety at 19 y old. Previously on Zoloft, no meds at present. Sees a therapist and symptoms are well controlled at present. 03/28/25 EPDS 3 Plan: Continue to monitor mood throughout Supervision of High Risk , Antepartum SEROLOGIES NEEDED [] OB consult only, [] Co-management vs. [x] Full [facility] Care; [] Red Team [] Blue Team Referring Provider: self referral to [facility], transferring care from Dr. Buzz Montes [] or Medicare Insurance [] Dating Criteria: UNK [] Labs: Rh [], Ab [], Rubella [], HIV [], HepBSAg [], HepBSAb [], HepBCAb [], RPR [], Hep C [], Varicella [], GC/CT [] [] Aneuploidy Screening: to be drawn at [facility] at next visit [x] Carrier Screening: [] Hgb electrophoresis: [] CBC/Hgb: [] Early 1hr GTT (if indicated): [] UCx: [] Pap: [] LD ASA (if indicated): [] EPDS [ ]; [facility] referral (if indicated): 2nd Trimester [] Anatomy ultrasound: [] CBC/1hr gtt at 24-28wks: [] Rhogam at 28 wks (if Rh neg): 3rd Trimester [] CBC/HIV/RPR/T&S: [] GBS: [] GC/CT (if indicated): [] testing: Counseling [] MOD: [] Place of delivery: [facility] [] Epidural: [] Accepts Blood Products: [] Stop ASA: [] MOC: [] Method of feeding: [] Infrastructure Analyst (specifically which provider): [] PP Depression Discussed: [] PP visits scheduled: Vaccines [] Flu Shot (Mar-Jun): [] COVID vaccine: [] Tdap (27-36wks): [] RSV vaccine (32-36wks): [] PP HPV vaccine counseling (<=26 yo): Patient plans to transfer care to [facility] as she would like to deliver at [facility]. She will discuss with primary OB. She will undergo 3hr GTT next week with primary OB. We have scheduled her to return in 2 weeks for NIPT, TSH, early anatomy US, and to review 3hr GTT results. Thank you for the opportunity to be involved in the care of your patient. Should you have any further questions or concerns, please do not hesitate to call us. Yuliana Parra MD [facility] A total of 60 minutes were spent for this visit, 45 minutes were spent with the patient during the visit and 15 minutes were spent in documentation. Progress Notes - Abstract - 03/21/2025 - GA:11w0d 03/21/2025 - 11w0d - Finn Fajardo RMA I'm waiting on her to sign her records release form for me to any of her information from her prior [email or web address] Last Filed Vital Signs Vital Sign Reading Time Taken Comments Blood Pressure 135/82 03/28/2025 1:28 PM CDT Pulse 85 03/28/2025 1:28 PM CDT Temperature 36.9 C (98.5 F) 05/27/2023 3:20 PM SAP BW DEVELOPER Respiratory Rate 14 05/27/2023 3:35 PM SAP BW DEVELOPER Oxygen Saturation 98% 03/28/2025 1:28 PM CDT Inhaled Oxygen Concentration - - Weight 110 kg (242 lb 8.1 oz) 03/28/2025 1:28 PM CDT Height 172.7 cm (5' 8) 03/28/2025 1:28 PM CDT Body Mass Index 36.87 03/28/2025 1:28 PM CDT Plan of Treatment Health Maintenance Due Date Last Done Comments Hepatitis C Screening 1996 Hepatitis B Screening 2014 Cervical Cancer Screening 09/29/2021 09/29/2020, Regular Well Visit/Exam 18-64 09/29/2021 09/29/2020, 07/06/2019, 07/03/2018, Additional history exists Influenza Vaccine (#1) 2025 , 04/13/2023, 06/19/2022, Additional history exists Depression Screening 03/28/2026 03/28/2025 DTaP/Tdap/Td Vaccine (4 - Td or Tdap) 11/20/2031 11/19/2021, 03/16/2019, 02/19/2008 HPV Vaccines Completed 09/02/2008, 04/17, 02/19/2008 Varicella Vaccines Completed 02/07/2015, 05/06/1997 Pneumococcal vaccine <65 Aged Out No longer eligible based on patient's age to complete this topic Procedures Procedure Name Priority Date/Time Associated Diagnosis Comments US OB LIMITED Schedule Routine, Read Routine (OP Routine) 03/28/2025 12:26 PM CDT Supervision of high-risk , unspecified trimester THINPREP IMAGING PAP REFLEX HPV MRNA E6/E7 Routine 09/29/2020 12:00 AM CDT from Last 3 Months or Most Recently Relevant to Health Maintenance Results * US Ob Limited (03/28/2025 12:26 PM CDT) Anatomical Region Laterality Modality Abdomen N/A Ultrasound 03/28/2025 12:2 9 PM CDT Impressions 03/28/2025 1:51 PM CDT Single IUP with cardiac activity and CRL that aligns with established VERENICE. There is a small 1.5 x 1.8 x 0.5cm subchorionic bleed. Narrative Procedure Note Yuliana Parra MD - 03/28/2025 IMPRESSION: Single IUP with cardiac activity and CRL that aligns with established VERENICE. There is a small 1.5 x 1.8 x 0.5cm subchorionic bleed. us Self Referral IMG OB US PROCEDURES Final Resul t * ThinPrep Imaging Pap Reflex HPV mRNA E6/E7 (09/29/2020 12:00 AM CDT) CLINICAL INFORMATION: Sanaz Davila Comment:Information not prov ided LMP Sanaz Davila Comment:09/11/20 Previous Pap Sanaz Davila Comment:PREV NEG Prev. Bx Sanaz Davila Comment:Information not prov ided SOURCE: Sanaz Davila Comment:Cervix, Endocervix Pap, specimen adequacy Sanaz Davila Comment: Satisfactory for evaluation. Endocervical/transformation zone component present. HPV interp Sanaz Davila Comment:Negative for intraep ithelial lesion or malignancy. COMMENTS Sanaz Davila Comment: This Pap test has been evaluated with computer assisted technology. [employer] Jorge Perez Comment: TMK, CT(ASCP) CT screening location: [place] [address] [address] [place] [id number] [facility] Giovanni Comment: EXPLANATORY NOTE: The Pap is a [...] MD LAB PATHOLOGY ORDERAB LES Final Result [place] [address] [address] [place] [phone] from Last 3 Months or Most Recently Relevant to Health Maintenance Insurance [employer] HE[employer]CARE [employer] COVENTRY HMO/POS CIGNA CIGNA Advance Directives For more information, please contact: [phone] * Full Code (Latest Code Status on File) Date Activated Date Inactivated Comments 01/06/2022 8:23 AM 01/08/2022 6:05 PM * Full Code Date Activated Date Inactivated Comments 01/05/2022 9:08 AM 01/06/2022 8:23 AM Care Teams Cotton Picker Operator Relationship Specialty Start Date End Date Robby Gresham MD [address] [id number] PCP - General 12/24/17 Marlys Guan MD [address] [id number] Obstetrics and Gynecology 02/23/17 Juliano Zamora MD [address] [address] Consulting Physician General Surgery 05/27/23
--- OUTSIDE RECORDS SUMMARY | 2025-04-04 07:03 | XMS_ITS | Clinical Summary ---
Author Organization [facility] Address [address] [place] [place] [address] Care Team Providers Care Script Worker Name Role Phone Unavailable Primary Care Provider Unavailabl e Source Comments [facility],non-owned Affiliates and Associated Physician Practices is amultiple site organization consisting of ambulatory clinics and hospital sitesin [place], [place], [place] and [place]. This disclosure is being madepursuant to the Care Everywhere program and may not contain all information available regarding this patient. Last updated 18.Ordr.in Allergies No known active allergies Medications * Be aware that medications may not be up to date on this document. Alwaysverify current medications with the patient. sertraline (ZOLOFT) 50 MG tabletIndicatio ns:Depression/a nxiety during Take 50 mg by mouth once daily Reasons: Depression/anx iety during Active Active Problems Problem Noted Date Diagnosed Date Depression screen 09/24/2021 Overview (09/24/2021): 09/24/2021 Miguel Rhoades was screened for depression using the Leverett Depression Scale (EPDS) at her [facility] initial evaluation on 09/24/2021. Her initial [...] ect in , antepartum, single gestation 09/24/2021 Estimated Date of Delivery Comme nts Yes 10/10/2025 Based on Est. Da te of Conception Resolved Problems Problem Noted Date Diagnosed Date Resolved Date [facility]- abnormality in pre gnancy- complex cardiac defect 09/23/2021 10/12/2021 Overview (10/06/2021): Images from the original note were not included. [facility] PATIENT--PLEASE CALL [phone] (ex 2) IF TRIAGED OR ADMITTED Care Provider: Referred by Dr. Liang; OB- [facility] [place] consultants involved: You- Nurse Navigator, Cardiology- Dr. Falk Diagnosis: DORV with small RV; pulmonary stenosis Planned surveillance: Patient transferred care to [facility] as of 10/06/2021 Delivery location: Delivery mode: Desired Delivery [place]: follow up: Robotics Technician: Autopsy indicated: Genetics note: [place] Concerns:09/24/2021-Patient with history of depression and anxiety-does [...] drink = 0.6 oz pur e alcohol) Leverett Depression Scale Answer Date Recorded RETIRED: Total Score 4 09/24/2021 Last EPDS Self Harm Result Not on file 09/24 Estimated Date of Delivery Comme nts Yes 10/10/2025 Based on Est. Da te of Conception Sex and Gender Information Value Date Recorded Sex Assigned at Not on file Legal Sex Female 10:07 AM [employer] Gender Identity Not on file Sexual Orientation Not on file Last Filed Vital Signs Vital Sign Reading Time Taken Comments Blood Pressure 126/74 09/24/2021 11:31 AM [employer] Pulse 91 09/24/2021 11:31 AM [employer] Temperature - - Respiratory Rate - - Oxygen Saturation - - Inhaled Oxygen Concentration - - Weight 101 kg (222 lb 10.6 oz) 09/24/2021 11:31 AM [employer] Height - - Body Mass Index - - Plan of Treatment Health Maintenance Due Date Last Done Comments HIV SCREENING 2011 HEPATITIS C SCREENING 04/29/2014 DTAP/TDAP/TD VACCINES (1 - Tdap) 2015 HEPATITIS B VACCINE (1 of 3 - 19+ 3-dose series) 2015 PAP SMEAR 2017 HPV VACCINE (1 - 3-dose SCDM series) 2023 DEPRESSION SCREENING 07/18/2024 COVID-19 VACCINE ( - season) 2025 07/20/2021, 11/27/2020, 11/06/2020 INFLUENZA VACCINE (#1) 2025 , 04/13/2023, 06/19/2022, Additional history exists OB-TDAP CURRENT 07/11/20252021, 03/16/2019, 02/19/2008 Respiratory Syncytial Virus (RSV) Vaccine Pt: or over 60 yrs (1 - Risk 1-dose series) 08/15/2025 OB-GROUP B STREP SCREEN 09/05/2025 01/05/2022 ZOSTER VACCINE (1 of 2) 2046 HIB VACCINE Aged Out No longer eligi ble based on patient's age to complete this topic MENINGOCOCCAL (Group B) VACCINE SHARED DECISION-MAKING Aged Out No longer eligible based on patient's age to complete this topic MENINGOCOCCAL GROUPS A/C/Y/W VACCINE Aged Out No longer eligible based on patient's age to complete this topic PNEUMOCOCCAL VACCINE Aged Out No long er eligible based on patient's age to complete this topic Insurance
--- OUTSIDE RECORDS SUMMARY | 2025-04-04 07:03 | XMS_ITS | Clinical Summary ---
Author Organization [facility] Address [address] [place] [address] Care Team Providers Care Christian [employer] Reader Name Role Phone Robby Gresham MD Primary Care Provider [phone] Allergies No known active allergies Medications omeprazole [...] Comments Blood Pressure 126/72 07/26/2024 2:35 PM CRM BUSINESS ANALYST Pulse 71 07/26/2024 2:35 PM CRM BUSINESS ANALYST Temperature 37.1 C (98.7 F) 04/13/2023 2:52 PM CDT Respiratory Rate 18 04/13/2023 2:52 PM CDT Oxygen Saturation 98% 07/26/2024 2:35 PM CRM BUSINESS ANALYST Inhaled Oxygen Concentration - - Weight 115 kg (253 lb 9.6 oz) 07/26/2024 2:35 PM CRM BUSINESS ANALYST Height 170.2 cm (5' 7) 07/26/2024 2:35 PM CRM BUSINESS ANALYST Body Mass Index 39.72 07/26/2024 2:35 PM CRM BUSINESS ANALYST Plan of Treatment Upcoming Encounters Date Type Department Care Team (Late st Contact Info) Description 04/25/2025 2:20 PM CDT Office Visit [facility] [place] [id number] [place] [phone] Robby Gresham MD [address] [place] [phone] Health Maintenance Due Date Last Done [...] 07/26/2024, 08/02/2022, 09/29/2020, Additional history exists Insurance [facility] OPEN ACCESS HMO Advance Directives For more information, please contact: [phone] * Full Code (Latest Code Status on File) Date Activated Date Inactivated Comments 11/28/2018 1:18 PM 11/28/2018 4:58 PM Care Teams [employer] Reader Relationship Specialty Start Date End Date Robby Gresham MD PCP - General Internal Medicine 12/14/17
[2025-04-04 07:33] LABS: Glucose Fasting Gestational 101 mg/dL (>/=95)
[2025-04-04 09:40] LABS: Glucose 1 Hour Gest 190 mg/dL (>/=180)
[2025-04-04 11:04] LABS: Glucose 2 Hour Gest 170 mg/dL (>/= 155)
[2025-04-04 11:41] LABS: Glucose 3 Hour Gest 146 mg/dL (>/=140)
== END 2025-04-04 06:59 | disposition home or self-care (01) ==
LOC: ANHLAB 07:00
PROVIDERS: PCP Internal Medicine; Visit Provider Student in an Organized Health Care Education/Training Program
DX: O99.810 Abnormal glucose complicating pregnancy (principal); Z3A.00 Weeks of gestation of pregnancy not specified
CPT/HCPCS: 36415; 82951; 82952